=== PATIENT | male | born 1965 | race African-American/Black ===

== ENCOUNTER 2017-01-19 23:45 | Emergency (ER) | payer MEDICARE, BC ==
--- NOTE | 2017-01-20 00:08 | ED Physician Chart ---
Chief Complaint/HPI - Patient Information Date Seen:: 01/20/17 Time Seen:: 00:00 Chief Complaint:: right thumb pain History of Present Illness:: The patient got out of bed tonight and apparently fell. He complains of pain base of right thumb and mild pain left upper back. He denies neck pain. At the scene a hard cervical collar was applied. Patient is right-hand dominant. Allergies:: Allergies Allergy/AdvReac Type Severity Reaction Status Date / Time No Known Allergies Allergy Verified 01/20/17 00:02 Historian:: Patient Review:: Nurse's Note Reviewed, Old Chart Reviewed Review of Systems - Review of Systems General/Constitutional: No fever, No chills Skin: No skin lesions Head: No headache Eyes: No loss of vision ENT: No earache Neck: No neck pain Cardio Vascular: No chest pain, No palpitations Pulmonary: No SOB, No cough GI: No nausea, No vomiting, No diarrhea G/U: No dysuria, No frequency Musculoskeletal: Bone or joint pain, No bone or joint pain Psychiatric: Depression, Anxiety Hematopoietic: No bruising Allergic/Immuno: No urticaria Neurological: No syncope, No focal symptoms Past Medical History - Past Medical History Past Medical History: HTN, PUD/GERD, Other (depression and anxiety) Family History: HTN Social History: Non Smoker, Alcohol, Other (has been in [place] for 5 days; formerly smoked cigarettes) Surgical History: other (deviated nasal septum; esophageal dilatation) Physical Exam - Physical Examination General/Constitutional: Well-developed, well-nourished, Alert, No distress Head: Atraumatic Eyes: Lids, conjuctiva normal, PERRL Skin: Nl inspection, No rash, No skin lesions, No ecchymosis, Well hydrated ENMT: External ears, nose nl, TM canals nl, Nasal exam nl, Lips, teeth, gums nl , Oropharynx nl, Tonsils nl Neck: No nuchal rigidity Other Neck comments:: 90 forward flexion of the neck after removal of hard cervical collar Respiratory: Nl effort/Exclusion, Clear to Auscultation Cardio Vascular: RRR, No murmur, gallop, rubs, NL S1 S2 GI: No tenderness/rebounding/guarding, No organomegaly, No hernia, Normal BS's, Nondistended, No mass/bruits, No McBurney tenderness Other Extremities comments:: Right thumb tenderness of base; neurovascular status is intact Neuro/Psych: No focal deficits Other Misc comments:: Mild tenderness of left superior back Labs/Radiology/EKG Results - Radiology Results Results: X-ray right thumb normal ED Septic Shock - . Is Septic Shock (SBP<90, OR Lactate>4 mmol\L) present?: No Reassessment (Disposition) - Reassessment Reassessment Condition:: Unchanged - Diagnosis Diagnosis:: Contusion right; strain left superior back - Aftercare/Follow up Instructions Aftercare/Follow-Up Instructions:: Refer to Discharge Instructions - Patient Disposition Discharge/Transfer:: cali Bower Condition at Disposition:: Stable, Unchanged
--- NOTE | 2017-01-20 11:06 | Diagnostic Imaging Report ---
Right hand (3 views) HISTORY: Pain, trauma No acute bony abnormalities. No fractures. Joint spaces appear normal. IMPRESSION: No acute abnormalities. In the presence of recent trauma and persistent symptoms, a repeat radiograph in 5-7 days may be helpful for detection of a subtle or occult fracture.
== END 2017-01-20 01:25 | disposition home or self-care (01) ==
LOC: ER 23:45
DX: S29.012A Strain of muscle and tendon of back wall of thorax, initial encounter (principal); S60.011A Contusion of right thumb without damage to nail, initial encounter; I10 Essential (primary) hypertension; K21.9 Gastro-esophageal reflux disease without esophagitis; Z87.891 Personal history of nicotine dependence; W06.XXXA Fall from bed, initial encounter; Y93.89 Activity, other specified; Y92.89 Other specified places as the place of occurrence of the external cause; Y99.8 Other external cause status
CPT/HCPCS: 73130-TC-RT; Z7502